=== PATIENT | female | born 1970 | race Hispanic/Latino ===

== ENCOUNTER 2025-01-05 15:26 | Emergency (ER) | payer SELFPAY ==
[~2025-01-05] VITALS: Ht 152.4 cm; Wt 183.4 kg
--- NOTE | 2025-01-05 16:08 | HMCIMG ---
CT ABDOMEN/PELVIS W/O CONTRAST REASON: RLQ ESTEFANIA COMPARISON: None. FINDINGS: Lung bases are clear. There are no focal liver lesions. There are normal-appearing kidneys.. Spleen and pancreas appear unremarkable. The gallbladder demonstrate multiple large gallstones in the gallbladder lumen. Bowel loops appear unremarkable. This includes normal appearance of the appendix the appendix is visualized and appears to be normal. There is no evidence of free fluid or intraperitoneal air. There are no focal fluid collections. The kidneys appears to be mildly atrophic. Aorta and retroperitoneum appear normal as do pelvic soft tissue structures. The anterior abdominal wall is intact. Osseous structures appear unremarkable. There is limited due to large body habitus. IMPRESSION: 1. Cholelithiasis 2. The patient is visualized and appears to be normal with no periappendiceal fat stranding. CT was performed with one or more following dose reduction techniques: automated exposure control, adjustment of the mA and kv according to patient's size, or use of a iterative reconstruction technique.
[2025-01-05 16:27] LABS: IMMATURE GRANULOCYTE ABSOLUTE 0.03 K/uL (0-1); NUCLEATED RED BLOOD CELLS 0.0 % (0.0-0.19); PLATELET COUNT (AUTO) 235 K/uL (130-400); RED BLOOD CELL COUNT(AUTO) 6.04 MIL/uL (4.00-5.50); RED CELL DISTRIBUTION WIDTH 18.4 % (11.0-15.5); WHITE BLOOD COUNT (AUTO) 8.6 K/uL (4.8-10.8)
[2025-01-05 16:35] LABS: CREATININE 0.5 mg/dL (0.5-1.0); GLOMERULAR FILTR. RATE CALC 111.0 mL/min (>90); GLUCOSE,RANDOM 97.0 mg/dL (70-105); SODIUM SERUM 140.0 mmol/L (136-145); UREA NITROGEN, BLOOD 14.0 mg/dL (7-18)
[2025-01-05] MEDS: 0.9%NACL 1000ML 1,000 ML IV ONE (17:50)
--- NOTE | 2025-01-05 18:39 | ERN ---
General Chief Complaint: Blood in Urine: Stated Complaint: URINATING BLOOD, PAIN IN RIGHT NELLA Time Seen by MD: 15:27 Source: patient History of Present Illness Initial Comments Patient is a 54-year-old female coming in to be evaluated for blood in the urine. Per patient she noticed it today. Patient states that the pain was present in the lower abdominal region more in the right side. Allergies: Coded Allergies: No Known Allergies (Unverified Allergy, Unknown, 01/05/25) Past Medical History Past Medical History: No Pertinent History Past Surgical History: ROS Dictation CONSTITUTIONAL: No chills, no fever, no weakness, no diaphoresis, no malaise. HEAD/FACE: No signs of trauma. EENT: No eye pain, no blurred vision, no tearing, no double vision, no ear pain, no ear discharge, no nose pain, no nasal congestion, no throat pain, no throat swelling, no mouth pain. RESPIRATORY: No cough, no orthopnea, no SOB, no stridor, no wheezing. CARDIOVASCULAR: No chest pain, no edema, no palpitations, no syncope. GASTROINTESTINAL/ABDOMINAL: No abdominal pain, no constipation, no diarrhea, no nausea, no vomiting. GENITOURINARY: No abnormal discharge, no dysuria, no frequent urination, hematuria. No complaints of pain in the genitals. MUSCULOSKELETAL: No back pain, no gout, no joint pain, no joint swelling, no muscle pain, no muscle stiffness, no neck pain. INTEGUMENTARY: No change in color, no change in hair/nails, no dryness, no lesion, no lumps, no rash. NEUROLOGICAL/PSYCH: No anxiety, not depressed, no emotional problem, no headache, no numbness, no pre-existing deficit, no history of seizures, no tremors, no weakness. HEMATOLOGIC/LYMPHATIC: Not anemic, no history of blood clots, no apparent bleeding, no bruising, glands not swollen. All Systems Negative, Except as Noted. Physical Exam Physical Exam Dictation VITAL SIGNS: Reviewed. GENERAL APPEARANCE: Alert, oriented x3, no acute distress, obese. HEAD AND FACE: Non-traumatic. EYES: PERRL, pink conjunctivas, eyelid no trauma, anterior chamber clear. EARS: Pinnas intact and no signs of trauma or erythema. Ear canals clear and no discharge. TMs no erythema. NOSE: No discharge, no bleeding. OROPHARYNX: Mouth normal, teeth no caries, tongue pink. Pharynx clear, no erythema. Tonsils no exudates, no abscesses noted. Mucous membrane moist. NECK: Supple, non-tender, no thyromegaly, no masses, no JVD, no bruits. BREAST: Deferred. CHEST: No tenderness, no crepitus, no paradoxical movement, no retractions. LUNGS: Clear, well-ventilated, symmetric, no rales, no wheezing, no rhonchi, no stridor, good breath sounds bilaterally. HEART: Regular rate, regular rhythm, no murmur, no gallops. VASCULAR: No peripheral edema. ABDOMEN: Soft, positive bowel sounds, nondistended, no guarding, nontender, no rebound, no masses no hepatomegaly, no splenomegaly, no George's sign, no hernias. RECTAL: Deferred. GENITAL: Deferred. NEUROLOGICAL: Normal speech, gross motor function intact, gross sensory function intact. MUSCULOSKELETAL: Neck nontender, full range of motion, back nontender, full range of motion. EXTREMITIES: Nontender, full range of motion. SKIN: Color pink, dry, no turgor, no rash, no lacerations, no abrasions, no contusions. LYMPHATICS: Deferred. Results Laboratory and Microbiology Lab and Micro Result Laboratory Tests Test 01/05/25 16:16 01/05/25 18:34 White Blood Count 8.6 K/uL (4.8-10.8) Red Blood Count 6.04 MIL/uL (4.00-5.50) H Hemoglobin 15.2 g/dL (12.0-16.0) Hematocrit 50.1 % (36-48) H Mean Corpuscular Volume 82.9 fL (79-99) Mean Corpuscular Hemoglobin 25.2 pg (27.0-33.0) L Mean Corpuscular Hemoglobin Concent 30.3 g/dL (32.0-36.0) L Red Cell Distribution Width 18.4 % (11.0-15.5) H Platelet Count 235 K/uL (130-400) Mean Platelet Volume 9.8 fL (7.5-10.5) Immature Granulocyte % (Auto) 0.4 % (0-1) Neutrophils (%) (Auto) 81.8 % (40.0-77.0) H Lymphocytes (%) (Auto) 10.3 % (21.0-51.0) L Monocytes (%) (Auto) 6.2 % (3.0-13.0) Eosinophils (%) (Auto) 1.1 % (0.0-8.0) Basophils (%) (Auto) 0.2 % (0.0-5.0) Neutrophils # (Auto) 7.0 K/uL (1.8-7.7) Lymphocytes # (Auto) 0.9 K/uL (1.0-4.8) L Monocytes # (Auto) 0.5 K/uL (0.1-1.0) Eosinophils # (Auto) 0.09 K/uL (0.00-0.70) Basophils # (Auto) 0.02 K/uL (0.00-0.20) Absolute Immature Granulocyte (auto 0.03 K/uL (0-1) Nucleated Red Blood Cells 0.0 % (0.0-0.19) Red Blood Cell Morphology See comments Sodium Level 140 mmol/L (136-145) Potassium Level 4.5 mmol/L (3.5-5.1) Chloride Level 101 mmol/L (101-111) Carbon Dioxide Level 34 mmol/L (21-32) H Blood Urea Nitrogen 14 mg/dL (7-18) Creatinine 0.5 mg/dL (0.5-1.0) Glomerular Filtration Rate Calc 111 mL/min (>90) Random Glucose 97 mg/dL (70-105) Total Calcium 8.4 mg/dL (8.5-10.1) L Urine Color LIGHT-YELLOW (YELLOW) Urine Appearance CLEAR (CLEAR) Urine pH 6.5 (5.0-8.0) Urine Specific [place] 1.012 (1.001-1.031) Urine Protein NEGATIVE mg/dL (NEGATIVE) Urine Glucose (UA) NEGATIVE mg/dL (NEGATIVE) Urine Ketones NEGATIVE mg/dL (NEGATIVE) Urine Occult Blood SMALL (NEGATIVE) H Urine Nitrate 2+ (NEGATIVE) H Urine Bilirubin NEGATIVE mg/dL (NEGATIVE) Urine Urobilinogen 0.2 mg/dL (0.2-1.0) Urine Leukocyte Esterase 75 Miladys/uL (NEGATIVE) H Urine RBC 11-25 /HPF (0-1) H Urine WBC 6-10 /HPF (0-1) H Urine Squamous Epithelial Cells RARE /HPF (0-2) Urine Bacteria MANY /HPF (None Seen) Labs Reviewed?: Yes EKG/XRAY/US/CT/MRI CT Scan Comment [facility] [address] [place] [address] IMAGING REPORT Signed PATIENT: GAUTAM CANDELARIA MR#: [id number] : 1970 SEX: F AGE: 54 LOCATION: [facility] ORDER 1540 STATUS: REG ER REPORT#: [id number] SERVICE 1538 REASON: RLQ ESTEFANIA ORDERING PHYSICIAN: MARICHUY CLINE MD PROCEDURE: ABD PEL WO - CT ABDOMEN/PELVIS W/O CONTRAST CT ABDOMEN/PELVIS W/O CONTRAST REASON: RLQ ESTEFANIA COMPARISON: None. FINDINGS: Lung bases are clear. There are no focal liver lesions. There are normal-appearing kidneys.. Spleen and pancreas appear unremarkable. The gallbladder demonstrate multiple large gallstones in the gallbladder lumen. Bowel loops appear unremarkable. This includes normal appearance of the appendix the appendix is visualized and appears to be normal. There is no evidence of free fluid or intraperitoneal air. There are no focal fluid collections. The kidneys appears to be mildly atrophic. Aorta and retroperitoneum appear normal as do pelvic soft tissue structures. The anterior abdominal wall is intact. Osseous structures appear unremarkable. There is limited due to large body habitus. IMPRESSION: 1. Cholelithiasis 2. The patient is visualized and appears to be normal with no periappendiceal fat stranding. CT was performed with one or more following dose reduction techniques: automated exposure control, adjustment of the mA and kv according to patient's size, or use of a iterative reconstruction technique. DICTATED BY: GAUTAM WADSWORTH MD DATE: 01/05/25 160 ELECTRONICALLY SIGNED BY: GAUTAM WADSWORTH MD DATE: 01/05/25 160 [facility] MDM: Differential diagnosis: UTI, hematuria, Rationale: Tests considered and ordered secondary to shared decision making include: Previous outside records reviewed: Old ER visits. Risk of complication and/or morbidity or mortality of patient management: None Medications-Per medication reconciliation Need for hospitalization: Patient does not meet criteria for hospitalization. Need for emergency major/minor surgery: No Patient is a 54-year-old female coming in complaining of hematuria laboratory workup positive for urinary tract infection. CT of the abdomen did not disclose acute findings. Patient will be discharged in stable condition with a diagnosis of UTI. ED Course Orders Procedure Category Date Status Time Cbc With Differential LAB 01/05/25 Complete 15:38 Basic Metabolic Panel LAB 01/05/25 Complete 15:38 Urinalysis LAB 01/05/25 Complete W/Microscopic 15:38 Ct Abdomen/Pelvis W/O CT 01/05/25 Resulted Contrast 15:38 0.9%Nacl 1000ml (Ns PHA 01/05/25 Complete 1000ml) 17:30 Culture Urine VERNA 01/05/25 Logged 18:42 Current Medications Medications (Trade) Dose Ordered Sig/Robb Route PRN Reason Start Time Stop Time Status Last Admin Dose Admin Sodium Chloride 1,000 ml @ 0 mls/hr ONCE ONCE IV 01/05/25 17:30 01/05/25 17:31 DC 01/05/25 17:50 Vital Signs Date Time Temp Pulse Resp B/P (MAP) Pulse Ox O2 Delivery O2 Flow Rate FiO2 01/05/25 16:33 98.2 81 18 133/72 95 Room Air* 0 21 01/05/25 15:29 98.2 81 18 133/72 95 Room Air 0 DX & DISP Disposition: Discharge Departure Impression: Primary Impression: UTI (urinary tract infection) Additional Impression: Hematuria Condition: Stable Scripts Cephalexin Monohydrate (Keflex) 500 Mg Cap 1 CAP PO TID for 10 Days, #30 CAP 0 Refills Prov: MARICHUY CLINE MD 01/05/25 Additional Instructions: FOLLOW-UP WITH PRIMARY CARE PROVIDER IN 1 TO 2 DAYS. TAKE MEDICATIONS DIRECTED HERE IN THE EMERGENCY ROOM. OKAY TO CONTINUE HOME MEDICATIONS UNLESS OTHERWISE DISCUSSED DURING YOUR VISIT IN THE EMERGENCY ROOM TODAY. RETURN TO YOUR NEAREST EMERGENCY ROOM IF SYMPTOMS WORSEN OR IF THERE IS NO IMPROVEMENT. CALL 911 IF YOU NEED IMMEDIATE ASSISTANCE. TAKE TYLENOL [id number] NEEDED AND IF NO CONTRAINDICATIONS ARE PRESENT. INCREASE ORAL HYDRATION. A WOUND CULTURE OR URINE CULTURE WAS ORDERED HERE IN THE EMERGENCY ROOM DEPARTMENT PLEASE FOLLOW-UP WITH PRIMARY CARE PROVIDER AND ADVISE THEM TO GET REPORTS FROM OUR FACILITY. IF YOU HAD ANY LEONARD WRAP/SPLINTS THAT WERE APPLIED HERE, PLEASE DO NOT REMOVE THEM UNTIL YOU SEE YOUR PRIMARY CARE OR SPECIALTY. Referrals: Referrals: NONE (PCP) JOYCE LEVI MD Time of Disposition: 19:02 MARICHUY CLINE MD Jan 05, 2025 18:39
[2025-01-05 18:41] LABS: APPEARANCE,URINE CLEAR (CLEAR); GLUCOSE, URINE (UA) NEGATIVE (NEGATIVE); LEUKOCYTE ESTERASE ,URINE 75 Leu/uL (NEGATIVE); NITRATE,URINE 2+ (NEGATIVE); OCCULT BLOOD,URINE SMALL (NEGATIVE)
[2025-01-05 18:50] LABS: SQUAMOUS EPITHELIAL CELL,UR RARE /HPF (0-2)
[2025-01-05] MEDS ORDERED: CEPH500B PO (19:02)
[2025-01-05 19:14] VITALS: BP 124/75; PULSE 74; RESP 18; TEMP 98.2; O2SAT 95
== END 2025-01-05 19:14 | disposition home or self-care (01) ==
LOC: EDH 15:26
DX: N39.0 Urinary tract infection, site not specified (principal); R31.9 Hematuria, unspecified; Z98.890 Other specified postprocedural states
CPT/HCPCS: 99284; 74176; 96360; 80048; 85025; 87086 ×2; 87186; 81001; 36415; J7030

== ENCOUNTER 2025-02-08 01:00 | Emergency (ER) | payer SELFPAY ==
[~2025-02-08] VITALS: Ht 165.1 cm; Wt 181.4 kg
[~2025-02-08 01:00] MED LIST: CEPH500B PO
[2025-02-08 01:04] VITALS: BP 127/73; PULSE 77; RESP 28; TEMP 98.3
[2025-02-08 01:25] LABS: APPEARANCE,URINE CLEAR (CLEAR); GLUCOSE, URINE (UA) NEGATIVE (NEGATIVE); LEUKOCYTE ESTERASE ,URINE NEGATIVE Leu/uL (NEGATIVE); NITRATE,URINE NEGATIVE (NEGATIVE); OCCULT BLOOD,URINE NEGATIVE (NEGATIVE)
--- NOTE | 2025-02-08 01:27 | ERN ---
ED Note History of Present Illness Stated Complaint: C/O LOWER ABD PAIN W/NAUSEA Chief Complaint: Abdominal Pain Time Seen by MD: 01:07 Dictation: This is a 54-year-old extremely morbidly obese female who presented to the emergency room with her son with diffuse abdominal pain and nausea she apparently has a had these similar symptoms in the past couple of months. She had a bowel movement yesterday. And she denied any constipation. No other family members are sick she denied fever chills and rigors no hematemesis or me frieda. She denied any dysuria hematuria or frequency. The son did report that they have eaten cheesy and deep fried foods. Temperature 98.3 pulse 77 respirations 28 blood pressure 127/73 with a pulse oximetry of 94% on room air Patient had similar episode in December at which time a CT scan of the abdomen and pelvis was done which was essentially unremarkable other than for some ch olelithiasis without cholecystitis. Allergies: Coded Allergies: No Known Allergies (Unverified Allergy, Unknown, 01/05/25) Home Meds Active Scripts Cephalexin Monohydrate (Keflex) 500 Mg Cap, 1 CAP PO TID for 10 Days, #30 CAP 0 Refills Prov:MARICHUY CLINE MD 01/05/25 Past Medical History Past Medical History: No Pertinent History Surgical History: Family History: Negative Social History: Negative History: Not Applicable RN Note Reviewed/Agreed w/PFSH: Yes Review of System Dictation Constitutional: Negative for fever,chills, and weight loss Eyes: Negative for injury, pain,redness, and discharge ENT: Negative for injury,pain or swelling Cardiovascular: Negative for chest pain, palpitations, and edema Respiratory: Negative for shortness of breath, cough, and wheezing, Abdomen/GI: Positive for abdominal pain, nausea, vomiting, denied diarrhea, and constipation Back: Negative for injury and pain : Negative for injury, bleeding and discharge MS/Extremity: Negative for injury and deformity Skin: Negative for rash, and discoloration Neuro: Negative for headache, weakness, numbness, tingling, and seizure Psych: Negative for suicide ideation, homicidal ideation, and hallucinations Initial Vital Sign VS Vital Signs Date Time Temp Pulse Resp B/P (MAP) Pulse Ox O2 Delivery O2 Flow Rate FiO2 02/08/25 01:04 98.2 77 28 127/73 94 Room Air Physical Exam Dictation General: awake, alert, NAD extreme obesity with a BMI of 67 Head/Face: Normocephalic, atraumatic Eyes: PERRL, EOMI, vision at baseline ENT: oral cavity clear, TMs clear, no signs of infection poor dentition Neck: Trachea midline, supple, no nuchal rigidity Cardiovascular: RRR, normal S1/S2, No MRGs, no JVD Respiratory: CTAB, no respiratory distress, No rales or wheezes Abdomen: Soft, mild tenderness throughout abdomen, very obese non-distended, normal bowel sounds, no guarding or rebound. Skin: Warm, dry, normal turgor, no rash MS/Extremity: Pulses equal, no cyanosis, neurovascular intact, FROM Neuro: COAx4, GCS 15, strength 5/5, CN 2-12 intact, normal cerebellar exam, normal gait, Psych: Normal behavior, mood, and affect normal Extremities-trace edema without any palpable cords, Homans sign is negative Results (Laboratory/Radiology) Laboratory/Radiology Laboratory Tests Test 02/08/25 01:10 02/08/25 01:36 02/08/25 01:46 Urine Color LIGHT-YELLOW (YELLOW) Urine Appearance CLEAR (CLEAR) Urine pH 6.0 (5.0-8.0) Urine Specific [place] 1.017 (1.001-1.031) Urine Protein NEGATIVE mg/dL (NEGATIVE) Urine Glucose (UA) NEGATIVE mg/dL (NEGATIVE) Urine Ketones NEGATIVE mg/dL (NEGATIVE) Urine Occult Blood NEGATIVE (NEGATIVE) Urine Nitrate NEGATIVE (NEGATIVE) Urine Bilirubin NEGATIVE mg/dL (NEGATIVE) Urine Urobilinogen 0.2 mg/dL (0.2-1.0) Urine Leukocyte Esterase NEGATIVE Miladys/uL Total Bilirubin 0.4 mg/dL (0.2-1.0) Direct Bilirubin 0.1 mg/dL (0.0-0.3) Aspartate Amino Transf (AST/SGOT) 12 U/L (10-37) Alanine Aminotransferase (ALT/SGPT) 14 U/L (12-78) Alkaline Phosphatase 87 U/L (50-136) Total Protein 6.7 g/dL (6.0-8.3) Albumin 2.8 g/dL (3.5-5.0) L White Blood Count 6.7 K/uL (4.8-10.8) Red Blood Count 5.77 MIL/uL (4.00-5.50) H Hemoglobin 14.6 g/dL (12.0-16.0) Hematocrit 47.4 % (36-48) Mean Corpuscular Volume 82.1 fL (79-99) Mean Corpuscular Hemoglobin 25.3 pg (27.0-33.0) L Mean Corpuscular Hemoglobin Concent 30.8 g/dL (32.0-36.0) L Red Cell Distribution Width 18.0 % (11.0-15.5) H Platelet Count 223 K/uL (130-400) Mean Platelet Volume 10.7 fL (7.5-10.5) H Immature Granulocyte % (Auto) 0.3 % (0-1) Neutrophils (%) (Auto) 70.8 % (40.0-77.0) Lymphocytes (%) (Auto) 17.6 % (21.0-51.0) L Monocytes (%) (Auto) 7.9 % (3.0-13.0) Eosinophils (%) (Auto) 3.1 % (0.0-8.0) Basophils (%) (Auto) 0.3 % (0.0-5.0) Neutrophils # (Auto) 4.8 K/uL (1.8-7.7) Lymphocytes # (Auto) 1.2 K/uL (1.0-4.8) Monocytes # (Auto) 0.5 K/uL (0.1-1.0) Eosinophils # (Auto) 0.21 K/uL (0.00-0.70) Basophils # (Auto) 0.02 K/uL (0.00-0.20) Absolute Immature Granulocyte (auto 0.02 K/uL (0-1) Nucleated Red Blood Cells 0.0 % (0.0-0.19) Red Blood Cell Morphology See comments Sodium Level 137 mmol/L (136-145) Potassium Level 4.2 mmol/L (3.5-5.1) Chloride Level 101 mmol/L (101-111) Carbon Dioxide Level 34 mmol/L (21-32) H Blood Urea Nitrogen 18 mg/dL (7-18) Creatinine 0.5 mg/dL (0.5-1.0) Glomerular Filtration Rate Calc 111 mL/min (>90) Random Glucose 108 mg/dL (70-105) H Total Calcium 8.5 mg/dL (8.5-10.1) Lipase 33 U/L (16-77) Labs Reviewed?: Yes ED Course ED Course Orders Procedure Category Date Status Time Cbc With Differential LAB 02/08/25 Complete 01:17 Urinalysis Profile LAB 02/08/25 Complete 01:17 Ketorolac PHA 02/08/25 Complete Tromethamine 30mg/Ml 01:30 Ondansetron 4mg Inj PHA 02/08/25 Complete (Zofran 4mg Inj) 01:30 Lipase LAB 02/08/25 Complete 01:17 Basic Metabolic Panel LAB 02/08/25 Complete 01:17 Hepatic Function Panel LAB 02/08/25 Complete 02:10 Hydromorphone 1 Mg PHA 02/08/25 Complete Inj (Dilaudid 1mg Inj 02:30 Current Medications Medications (Trade) Dose Ordered Sig/Robb Route PRN Reason Start Time Stop Time Status Last Admin Dose Admin Hydromorphone HCl (DiLAUDid 1MG INJ) 1 mg ONCE ONCE IVP 02/08/25 02:30 02/08/25 02:31 DC 02/08/25 02:42 Ketorolac Tromethamine (toRADol) 30 mg ONCE ONCE IVP 02/08/25 01:30 02/08/25 01:31 DC 02/08/25 01:55 Ondansetron HCl (zoFRAN 4MG INJ) 4 mg ONCE ONCE IVP 02/08/25 01:30 02/08/25 01:31 DC 02/08/25 01:55 Vital Signs Date Time Temp Pulse Resp B/P (MAP) Pulse Ox O2 Delivery O2 Flow Rate FiO2 02/08/25 01:04 98.2 77 28 127/73 94 Room Air We will perform diagnostic labs, advanced imaging and administer medications according to the patient's complaint. Once the results are available, will review and personally interpreted the labs to rule out any acute life- threatening emergency the trach require immediate intervention and treatment. I will then re-evaluate the patient after treatment and diagnostic exams have return to determine whether the patient requires any further testing, can safely be discharged home or need further admission to hospital for additional treatment and evaluation. Labs reviewed CBC is with a normal limits BNP 7 is normal urinalysis is unremarkable. Lipase is 33 LFTs are also with a normal limits. 01/05/[address] abdomen and pelvis that only showed cholelithiasis w ith a normal appendix. I have updated the patient's son about the results of the lab testing and the recent CT scan of the abdomen being unremarkable. I have also counseled on dietary modifications and weight loss for the patient. We will discharge her to follow up with her primary care physician Medical Decision Making MDM Differential diagnosis: UTI, constipation, vaginitis, pelvic pain Rationale: Tests considered and ordered secondary to shared decision making include: Previous outside records reviewed: Old ER visits. Risk of complication and/or morbidity or mortality of patient management: None Medications-Per medication reconciliation Need for hospitalization: Patient does not meet criteria for hospitalization. Need for emergency major/minor surgery: No There are no social concerns with this patient. Prescription drug management Prescriptions will include symptomatic care Patient's prior external medical records from other ER visits were reviewed by me as indicated. Prior testing and results from previous visits were reviewed. Prior tests were taken into account with medical decision making and resource utilization, independent historian/historians were used to obtain complete medical history. I independently interpreted the test that were performed, results were reviewed by me and considered findings on radiology if ordered. Medical management and examination interpretation discussions were had by me with other qualified healthcare professionals as indicated for the patient's care. Problem List Problem List: (1) Biliary colic symptom (2) Morbid obesity with BMI of 60.0-69.9, adult DX & DISP Disposition: Discharge Departure Impression: Primary Impression: Biliary colic symptom Additional Impression: Morbid obesity with BMI of 60.0-69.9, adult Condition: Stable Scripts Ketorolac Tromethamine (Toradol) 10 Mg Tab 10 MG PO QID for pain for 5 Days, #20 TAB 0 Refills Prov: CASSIE SANCHEZ MD 02/08/25 Additional Instructions: Patient and the caregiver have been informed of all the diagnostic tests and the imaging conducted during the today's visit to the emergency room and has verbalized understanding of the results I have personally reviewed and interpreted all diagnostic exams performed here in the ER today as well as the vital signs documented by the nursing staff. The patient is now being discharged to home and should follow up with the primary care physician or the specialist as directed by the ER staff. Follow-up with primary care provider in 1 to 2 days. Take medications as directed here in the emergency room. Okay to continue home medications unless otherwise discussed during your visit in the emergency room today. Return to your nearest emergency room if symptoms worsen or if there is no improvement. Call 911 if you need immediate assistance. Take Tylenol or Motrin [id number] as needed and if no contraindications are present. Increase oral hydration. A wound culture or urine culture was ordered here in the emergency room department please follow-up with primary care provider and advise them to get repeat ports from our facility. If you had any Joe wrap/splints that were applied here, please do not remove them until you see your primary care or specialty. Referrals: SELF,REFERRAL (PCP) CASSIE SANCHEZ MD Feb 08, 2025 01:27
[2025-02-08 01:33] LABS: ADD UA MICROSCOPIC NO
[2025-02-08 01:55] LABS: IMMATURE GRANULOCYTE ABSOLUTE 0.02 K/uL (0-1); NUCLEATED RED BLOOD CELLS 0.0 % (0.0-0.19); PLATELET COUNT (AUTO) 223 K/uL (130-400); RED BLOOD CELL COUNT(AUTO) 5.77 MIL/uL (4.00-5.50); RED CELL DISTRIBUTION WIDTH 18.0 % (11.0-15.5); WHITE BLOOD COUNT (AUTO) 6.7 K/uL (4.8-10.8)
[2025-02-08 02:06] LABS: CREATININE 0.5 mg/dL (0.5-1.0); GLOMERULAR FILTR. RATE CALC 111.0 mL/min (>90); GLUCOSE,RANDOM 108.0 mg/dL (70-105); SODIUM SERUM 137.0 mmol/L (136-145); UREA NITROGEN, BLOOD 18.0 mg/dL (7-18)
[2025-02-08 02:24] LABS: ASPARTATE AMINOTRANSFERASE 12.0 U/L (10-37); TOTAL PROTEIN, SERUM 6.7 g/dL (6.0-8.3)
[2025-02-08] MEDS ORDERED: KETO10 PO (03:09)
== END 2025-02-08 03:21 | disposition home or self-care (01) ==
LOC: EDH 01:00
DX: K80.50 Calculus of bile duct without cholangitis or cholecystitis without obstruction (principal); E66.01 Morbid (severe) obesity due to excess calories; Z68.44 Body mass index [BMI] 60.0-69.9, adult; Z79.899 Other long term (current) drug therapy
CPT/HCPCS: 99284; 96374; 96375; 80076; 80048; 83690; 85025; 81003; 36415; J1885; J1171; J2405

== ENCOUNTER 2025-03-26 18:15 | Emergency (ER) | payer SELFPAY ==
[~2025-03-26] VITALS: Ht 162.6 cm; Wt 177.8 kg
[~2025-03-26 18:15] MED LIST changes: +KETO10 PO
[2025-03-26 18:47] LABS: IMMATURE GRANULOCYTE ABSOLUTE 0.04 K/uL (0-1); NUCLEATED RED BLOOD CELLS 0.0 % (0.0-0.19); PLATELET COUNT (AUTO) 262 K/uL (130-400); RED BLOOD CELL COUNT(AUTO) 5.83 MIL/uL (4.00-5.50); RED CELL DISTRIBUTION WIDTH 17.4 % (11.0-15.5); WHITE BLOOD COUNT (AUTO) 13.1 K/uL (4.8-10.8)
[2025-03-26 18:50] LABS: APPEARANCE,URINE CLOUDY (CLEAR); GLUCOSE, URINE (UA) NEGATIVE (NEGATIVE); LEUKOCYTE ESTERASE ,URINE 500 Leu/uL (NEGATIVE); NITRATE,URINE NEGATIVE (NEGATIVE); OCCULT BLOOD,URINE LARGE (NEGATIVE)
--- NOTE | 2025-03-26 18:51 | NUR ---
PENDING GFR, TEST RESULTS, IV SITE, & CONSENT FOR CT EXAM.
[2025-03-26] MEDS ORDERED: IOHEXOL-350 75 ML VIAL IV ONE (18:53)
[2025-03-26 18:55] LABS: ADD UA MICROSCOPIC YES
[2025-03-26 18:59] LABS: SQUAMOUS EPITHELIAL CELL,UR MOD /HPF (0-2)
[2025-03-26 19:03] LABS: CREATININE 0.6 mg/dL (0.5-1.0); GLOMERULAR FILTR. RATE CALC 107.0 mL/min (>90); GLUCOSE,RANDOM 108.0 mg/dL (70-105); SODIUM SERUM 139.0 mmol/L (136-145); UREA NITROGEN, BLOOD 17.0 mg/dL (7-18)
[2025-03-26 19:09] LABS: ASPARTATE AMINOTRANSFERASE 21.0 U/L (10-37); TOTAL PROTEIN, SERUM 7.2 g/dL (6.0-8.3)
--- NOTE | 2025-03-26 20:22 | HMCIMG ---
EXAM: CT Abdomen and Pelvis with IV contrast CLINICAL HISTORY: Presents with right lower quadrant abdominal pain. TECHNIQUE: Axial computed tomography images of the abdomen and pelvis with intravenous contrast. COMPARISON: CT abdomen and pelvis dated 01/05/2025. FINDINGS: LUNG BASES: The lung bases appear clear. No pleural effusions are seen. LIVER: Enlarged in size measuring 20 cm. GALLBLADDER AND BILE DUCTS: Few intraluminal calculi, largest measuring 2.3 cm. No biliary ductal dilatation is evident. PANCREAS: Unremarkable. SPLEEN: Unremarkable. ADRENAL GLANDS: Well defined enhancing nodule measuring 2.3 x 3.3 cm arising from the left adrenal gland. KIDNEYS, URETERS, AND BLADDER: The kidneys appear within normal limits. There is no hydronephrosis or hydroureter. No urinary calculi are seen. Suboptimally distended urinary bladder STOMACH AND BOWEL: Unremarkable appearance of the stomach and bowel. No evidence of bowel obstruction. No evidence suggesting enteritis or colitis. APPENDIX: No evidence of acute appendicitis on CT examination. PERITONEUM: No free fluid. No free air. LYMPH NODES: No lymphadenopathy is evident. REPRODUCTIVE: Unremarkable as visualized. VASCULATURE: No evidence of abdominal aortic aneurysm. BONES: No aggressive appearing osseous lesion. No acute osseous pathology evident. Left paramedian defect measuring 3.1 cm in the anterior abdominal wall at the level of the hypogastrium with herniation of omental fat and loop of transverse colon. No evidence of obstruction. IMPRESSION: No acute intra-abdominal or pelvic abnormality. Hepatomegaly . Cholelithiasis with no evidence of acute cholecystitis. Suggested USG correlation, if clinically indicated. Anterior abdominal wall ,left paramedian hernia at the level of the hypogastrium . Well defined enhancing nodule arising from the left adrenal gland. Suggested MRI adrenal protocol for further evaluation. /[place]
[2025-03-26] MEDS ORDERED: ONDA-243 PO (20:57)
[2025-03-26] MEDS ORDERED: MACR100 PO (20:57)
--- NOTE | 2025-03-26 20:57 | ERN ---
General Chief Complaint: Abdominal Pain Stated Complaint: ABD PAIN Time Seen by MD: 18:17 Time Seen by Midlevel: 18:17 Source: patient History of Present Illness Initial Comments 54-year-old female presents the emergency department with right quadrant/right lower quadrant abdominal pain. No other symptoms reported Allergies: Coded Allergies: No Known Allergies (Unverified Allergy, Unknown, 01/05/25) Home Meds Active Scripts Ketorolac Tromethamine (Toradol) 10 Mg Tab, 10 MG PO QID for pain for 5 Days, #20 TAB 0 Refills Prov:CASSIE SANCHEZ MD 02/08/25 Cephalexin Monohydrate (Keflex) 500 Mg Cap, 1 CAP PO TID for 10 Days, #30 CAP 0 Refills Prov:MARICHUY CLINE MD 01/05/25 Past Medical History Past Medical History: Gallstones Past Surgical History: Family History Family History: Negative Social History Social History: Negative Female( History) History: Not Applicable ROS Dictation CONSTITUTIONAL: Negative except for HPI HEAD/FACE: Negative except for HPI EENT: Negative except for HPI RESPIRATORY: Negative except for HPI GASTROINTESTINAL/ABDOMINAL: Negative except for HPI GENITOURINARY: Negative except for HPI MUSCULOSKELETAL: Negative except for HPI INTEGUMENTARY: Negative except for HPI NEUROLOGICAL/PSYCH: Negative except for HPI HEMATOLOGIC/LYMPHATIC: Negative except for HPI All Systems Negative, Except as noted above. 13 point review of systems assessed and all negative except for above. Physical Exam Physical Exam Dictation Vital Signs reviewed General Appearance: Alert, oriented x 3, no acute distress, well developed, nourished. Head and Face: non-traumatic. Eyes: PERRL, pink conjunctivas, eyelid no trauma, anterior chamber with arcus senilis. Ears: Pinnas intact and no signs of trauma or erythema ear canals clear and no discharge TM no erythema Nose: No discharge, no bleeding. Oropharynx: Mouth normal, tongue pink, pharynx clear,no erythema, tonsils no exudates, no abscesses noted, mucous membrane moist Neck: Supple, non-tender, no thyromegaly, no masses, no JVD, no bruits Breast:Deferred Chest:No tenderness, no crepitus, no paradoxical movement, no retractions Lungs:Clear, well-ventilated, symmetric, no rales, no wheezing, no rhonchi, no stridor, good breath sounds bilaterally Heart: Regular rate, regular rhythm, no murmur, no gallops Vascular: no peripheral edema, Abdomen: Soft, positive bowel sounds, nondistended, no guarding, Right quadrant abdominal tenderness, no rebound, no masses no hepatomegaly, no splenomegaly, no George's sign, no hernias. Rectal: Deferred Genital: Deferred Neurological: Normal speech, motor function intact, sensory function intact Musculoskeletal: Neck nontender, full range of motion, back nontender, full range of motion, Extremities: nontender, full range of motion Skin: Color pink, dry, no turgor, no rash, no lacerations, no abrasions, no contusions. Lymphatic: Deferred Results Laboratory and Microbiology Lab and Micro Result Laboratory Tests Test 03/26/25 18:30 03/26/25 18:35 Urine Color YELLOW (YELLOW) Urine Appearance CLOUDY (CLEAR) H Urine pH 6.5 (5.0-8.0) Urine Specific [place] 1.022 (1.001-1.031) Urine Protein 20 mg/dL (NEGATIVE) H Urine Glucose (UA) NEGATIVE mg/dL (NEGATIVE) Urine Ketones NEGATIVE mg/dL (NEGATIVE) Urine Occult Blood LARGE (NEGATIVE) H Urine Nitrate NEGATIVE (NEGATIVE) Urine Bilirubin NEGATIVE mg/dL (NEGATIVE) Urine Urobilinogen 0.2 mg/dL (0.2-1.0) Urine Leukocyte Esterase 500 Miladys/uL (NEGATIVE) H Urine RBC TNTC /HPF (0-1) H Urine WBC 26-50 /HPF (0-1) H Urine Squamous Epithelial Cells MOD /HPF (0-2) Urine Bacteria FEW /HPF (None Seen) White Blood Count 13.1 K/uL (4.8-10.8) H Red Blood Count 5.83 MIL/uL (4.00-5.50) H Hemoglobin 15.0 g/dL (12.0-16.0) Hematocrit 48.7 % (36-48) H Mean Corpuscular Volume 83.5 fL (79-99) Mean Corpuscular Hemoglobin 25.7 pg (27.0-33.0) L Mean Corpuscular Hemoglobin Concent 30.8 g/dL (32.0-36.0) L Red Cell Distribution Width 17.4 % (11.0-15.5) H Platelet Count 262 K/uL (130-400) Mean Platelet Volume 9.4 fL (7.5-10.5) Immature Granulocyte % (Auto) 0.3 % (0-1) Neutrophils (%) (Auto) 86.2 % (40.0-77.0) H Lymphocytes (%) (Auto) 8.5 % (21.0-51.0) L Monocytes (%) (Auto) 4.5 % (3.0-13.0) Eosinophils (%) (Auto) 0.3 % (0.0-8.0) Basophils (%) (Auto) 0.2 % (0.0-5.0) Neutrophils # (Auto) 11.3 K/uL (1.8-7.7) H Lymphocytes # (Auto) 1.1 K/uL (1.0-4.8) Monocytes # (Auto) 0.6 K/uL (0.1-1.0) Eosinophils # (Auto) 0.04 K/uL (0.00-0.70) Basophils # (Auto) 0.02 K/uL (0.00-0.20) Absolute Immature Granulocyte (auto 0.04 K/uL (0-1) Nucleated Red Blood Cells 0.0 % (0.0-0.19) White Cell Morphology Comment See comments Red Blood Cell Morphology ANISO 1+ Sodium Level 139 mmol/L (136-145) Potassium Level 4.4 mmol/L (3.5-5.1) Chloride Level 100 mmol/L (101-111) L Carbon Dioxide Level 30 mmol/L (21-32) Blood Urea Nitrogen 17 mg/dL (7-18) Creatinine 0.6 mg/dL (0.5-1.0) Glomerular Filtration Rate Calc 107 mL/min (>90) Random Glucose 108 mg/dL (70-105) H Total Calcium 8.3 mg/dL (8.5-10.1) L Total Bilirubin 0.6 mg/dL (0.2-1.0) Direct Bilirubin 0.2 mg/dL (0.0-0.3) Aspartate Amino Transf (AST/SGOT) 21 U/L (10-37) Alanine Aminotransferase (ALT/SGPT) 22 U/L (12-78) Alkaline Phosphatase 84 U/L (50-136) Total Protein 7.2 g/dL (6.0-8.3) Albumin 3.2 g/dL (3.5-5.0) L Serum Test, Qualitative NEGATIVE (NEGATIVE) Labs Reviewed?: Yes MDM MDM: Differential diagnosis: Acute cholecystitis, acute appendicitis, urinary tract infection There are no social concerns with this patient. Prescription drug management Prescriptions will include: Macrobid Medical management and examination interpretation discussions were had by me with other qualified healthcare professionals as indicated for the patient's care. ED Course Orders Procedure Category Date Status Time Cbc With Differential LAB 03/26/25 Complete 18:19 Basic Metabolic Panel LAB 03/26/25 Complete 18:19 Hepatic Function Panel LAB 03/26/25 Complete 18:19 Testing, LAB 03/26/25 Complete Serum Hcg 18:19 Urinalysis Profile LAB 03/26/25 Complete 18:19 Ct Abdomen/Pelvis CT 03/26/25 Resulted W/Contrast 18:19 Ketorolac PHA 03/26/25 Complete Tromethamine 15mg/Ml 18:30 Iohexol (Omnipaque) PHA 03/26/25 Complete 18:53 Culture Urine VERNA 03/26/25 In Process 18:55 Current Medications Medications (Trade) Dose Ordered Sig/Robb Route PRN Reason Start Time Stop Time Status Last Admin Dose Admin Iohexol (Omnipaque) 75 ml STK-MED ONCE IV 03/26/25 18:53 03/26/25 18:53 DC Ketorolac Tromethamine (toRADol) 15 mg ONCE ONCE IV 03/26/25 18:30 03/26/25 18:31 DC 03/26/25 19:42 Vital Signs Date Time Temp Pulse Resp B/P (MAP) Pulse Ox O2 Delivery O2 Flow Rate FiO2 03/26/25 19:18 98.2 81 16 121/62 98 Room Air* 0 21 03/26/25 18:17 99.0 80 18 132/60 95 Room Air 0 [place] [id number] [address] IMAGING REPORT Signed PATIENT: GAUTAM CANDELARIA MR#: [id number] : 1970 SEX: F AGE: 54 LOCATION: [facility] ORDER 19 STATUS: REG ER REPORT#: [id number] SERVICE 18 REASON: RLQ abd pain ORDERING PHYSICIAN: JOYCE GUDINO PAC PROCEDURE: ABD PEL W - CT ABDOMEN/PELVIS W/CONTRAST EXAM: CT Abdomen and Pelvis with IV contrast CLINICAL HISTORY: Presents with right lower quadrant abdominal pain. TECHNIQUE: Axial computed tomography images of the abdomen and pelvis with intravenous contrast. COMPARISON: CT abdomen and pelvis dated 01/05/2025. FINDINGS: LUNG BASES: The lung bases appear clear. No pleural effusions are seen. LIVER: Enlarged in size measuring 20 cm. GALLBLADDER AND BILE DUCTS: Few intraluminal calculi, largest measuring 2.3 cm. No biliary ductal dilatation is evident. PANCREAS: Unremarkable. SPLEEN: Unremarkable. ADRENAL GLANDS: Well defined enhancing nodule measuring 2.3 x 3.3 cm arising from the left adrenal gland. KIDNEYS, URETERS, AND BLADDER: The kidneys appear within normal limits. There is no hydronephrosis or hydroureter. No urinary calculi are seen. Suboptimally distended urinary bladder STOMACH AND BOWEL: Unremarkable appearance of the stomach and bowel. No evidence of bowel obstruction. No evidence suggesting enteritis or colitis. APPENDIX: No evidence of acute appendicitis on CT examination. PERITONEUM: No free fluid. No free air. LYMPH NODES: No lymphadenopathy is evident. REPRODUCTIVE: Unremarkable as visualized. VASCULATURE: No evidence of abdominal aortic aneurysm. BONES: No aggressive appearing osseous lesion. No acute osseous pathology evident. Left paramedian defect measuring 3.1 cm in the anterior abdominal wall at the level of the hypogastrium with herniation of omental fat and loop of transverse colon. No evidence of obstruction. IMPRESSION: No acute intra-abdominal or pelvic abnormality. Hepatomegaly . Cholelithiasis with no evidence of acute cholecystitis. Suggested USG correlation, if clinically indicated. Anterior abdominal wall ,left paramedian hernia at the level of the hypogastrium . Well defined enhancing nodule arising from the left adrenal gland. Suggested MRI adrenal protocol for further evaluation. /[place] DICTATED BY: YANETH SEBASTIAN MD DATE: 03/26/252121 ELECTRONICALLY SIGNED BY: YANETH SEBASTIAN MD DATE: 03/26/252121 DX & DISP Disposition: Discharge Departure Impression: Primary Impression: Cholelithiases Additional Impressions: Biliary colic, UTI (urinary tract infection) Condition: Stable Scripts Ondansetron (Ondansetron Odt) 4 Mg Tab.rapdis 4 MG PO BID for 7 Days, #14 TAB Prov: JOYCE GUDINO PAC 03/26/25 Nitrofurantoin/Nitrofuran Mac (Macrobid) 100 Mg Cap 1 CAP PO BID for 7 Days, #14 CAP 0 Refills Prov: JOYCE GUDINO PAC 03/26/25 Referrals: RAMIRO MACDONALD M.D. (PCP) I have reviewed the case, and I agree with, Diagnosis and Plan I performed the substantive portion of the visit. I have reviewed and personally made and approve the management plan that is documented in the note by myself or the [facility]. I acknowledge for responsibility for the patient's management plan. JOYCE GUDINO [facility] Mar 26, 2025 20:57
[2025-03-26] MEDS ORDERED: KETO10TA2 PO (20:59)
[2025-03-26 21:03] VITALS: BP 141/76; PULSE 89; RESP 20; TEMP 98.3; O2SAT 98
== END 2025-03-26 21:17 | disposition home or self-care (01) ==
LOC: EDH 18:15
DX: K80.20 Calculus of gallbladder without cholecystitis without obstruction (principal); N39.0 Urinary tract infection, site not specified; Z79.899 Other long term (current) drug therapy; Z98.890 Other specified postprocedural states
CPT/HCPCS: 99285; 74177; 96374; 80076; 80048; 84703; 85025; 87086 ×2; 87186; 81001; 36415; J1885; Q9967